=== PATIENT | female | born 1995 | race Caucasian/White ===

== ENCOUNTER 2020-09-09 11:29 | Outpatient (REF) | payer OTHER, SELFPAY | END 2020-09-09 11:30 | disposition home or self-care (01) | LOC: HO.LAB 11:29 | PROVIDERS: Visit Provider Internal Medicine | DX: Z20.828 Contact with and (suspected) exposure to other viral communicable diseases (principal) | CPT/HCPCS: 87635 ==

== ENCOUNTER 2020-12-19 20:50 | Emergency (ER) | payer OTHER, SELFPAY ==
[2020-12-19 21:32] VITALS: BP 116/78; PULSE 76; RESP 18; TEMP 37.4; O2SAT 96; BMI 37.3
--- NOTE | 2020-12-19 21:44 | PC.NURSE ---
COVID/FLU/RSV SWAB OBTAINED AND SENT TO LAB FOR ANALYSIS. AWAITING RESULTS.
--- NOTE | 2020-12-19 22:11 | ED.GENADULT ---
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 Patient states no coughing, chest pain, shortness of breath Related Data Allergies Allergy/AdvReac Type Severity Reaction Status Date / Time juan Allergy Unknown SWELLING Unverified 07/30/20 16:23 poison la extract Allergy Unknown DIFFICULTY Unverified 07/30/20 16:23 [POISON LA] BREATHING seansonal allergies Allergy Unknown Uncoded 04/26/19 00:00 Review of Systems Review of Systems: Yes all other systems are reviewed and are negative Constitutional: Constitutional: Reports as per HPI, Reports no additional constitutional complaints, Reports body ache(s) and Reports headache(s) Eyes: Eyes: Reports as per HPI and Reports no additional eye complaints ENT: Reports system reviewed and no additional complaints, except as documented, Reports as per HPI and Reports headache(s) Cardiovascular: Cardiovascular: Reports as per HPI and Reports no additional cardiovascular complaints Respiratory: Respiratory: Reports as per HPI and Reports no additional respiratory complaints Gastrointestinal: Gastrointestinal: Reports as per HPI and Reports no additional gastrointestinal complaints Genitourinary: Genitourinary: Reports no additional female genitourinary complaints and Reports as per HPI Musculoskeletal: Musculoskeletal: Reports no additional musculoskeletal complaints and Reports as per HPI Neurologic: Reports system reviewed and no additional complaints, except as documented, Reports as per HPI and Reports headache(s) PMFSH Social History Social History Advance Directives: No Advance Directives Information Provided: No Physical Exam Vital Signs: Vital Signs: Last Vital Signs Temp 99.4 F 12/19/20 21:32 Pulse 76 12/19/20 21:32 Resp 18 12/19/20 21:32 BP 116/78 12/19/20 21:32 Pulse Ox 96 12/19/20 21:32 Body Mass Index 37.3 Const: General: cooperative, healthy appearing, comfortable, no acute distress, well developed, alert, awake and Physically active Orientation/consciousness: patient oriented x3 HENMT: Head: Yes normal to inspection, Yes No palpable skull fracture present, Yes normocephalic and Yes atraumatic Eyes: General: appearance normal, both eyes and all related structures Neck: Neck: Yes normal visual inspection, Yes full ROM, Yes no lymphadenopathy, Yes no meningeal signs, Yes trachea midline, Yes supple and No tender Chest: Chest palpation & inspection: normal inspection of the chest and normal palpation of entire chest wall Resp: Effort & Inspection: normal respiratory effort, able to speak in complete sentences and uses accessory muscles Cardio: Jugular venous distension: no JVD Heart sounds: S1 normal heart sound present and S2 normal heart sound present GI: Inspection: Yes normal to inspection and No abdominal wall ecchymosis Palpation (GI): Soft to palpation, not firm, nontender, no guarding and not rigid : General: No CVA tenderness and Yes no CVA tenderness Back/Spine/Pelvis: Back: no CVA tenderness, No CVA tenderness and No back tenderness Skin: General skin exam: no rashes or lesions noted and elasticity normal Neuro: General: patient oriented x3, no meningeal signs and CN's II-XI intact bilaterally Cranial nerves: Yes CN's II-XII intact bilaterally Extrem: General: Yes normal to inspection and Yes full ROM Psych: Appearance: grossly normal, well kempt and not disheveled Course Course Course Narrative: Patient is swabbed for COVID-19 virus. Reevaluation(s) Reevaluation #1: Patient educated on self-isolation. Patient will be called with results and be discharged. Time: 21:32 Reevaluation #2: Patient was called on her cell phone and she was informed that she is positive for COVID-19 virus. Patient informed to self quarantine Time: 00:51 Medical Decision Making [facility] Narrative Medical decision making narrative: Viral syndrome. COVID-19 Lab Data Labs: Lab Results 12/19/20 Range/Units 21:42 Coronavirus (PCR) POSITIVE A (Negative) Influenza Type A (PCR) NEGATIVE (Negative) Influenza Type B (PCR) NEGATIVE (Negative) RSV RNA Qual (PCR) NEGATIVE (Negative) Discharge Plan Discharge Clinical Impression: Acute viral syndrome Patient Disposition: Home, Self-Care Instructions: Viral Syndrome (ED), COVID-19 (Coronavirus Disease 2019) (ED) Additional Instructions: Return to the ED immediately for any chest pain, shortness of breath, weakness, dizziness, or any other concerning symptoms. your COVID test come back positive recommend 14 days self-isolation. Please follow-up PCP Interventions: ED Discharge Assessment Last Done: 12/19/20 22:35 Discharge Date/Time: 12/19/20 22:35 Print Language: Sami
[2020-12-19 23:37] LABS: Influenza A PCR NEGATIVE (Negative); Influenza B PCR NEGATIVE (Negative); Resp Syncy Virus RNA Qual PCR NEGATIVE (Negative)
[2020-12-19 23:52] LABS: SARS COV2 PCR INHOUSE POSITIVE (Negative)
== END 2020-12-19 22:35 | disposition home or self-care (01) ==
PROVIDERS: Physician Assistant; Emergency Provider Emergency Medicine
DX: U07.1 COVID-19 (principal); R51.9 Headache, unspecified; M79.10 Myalgia, unspecified site
CPT/HCPCS: 0241U; 36415; 99283

== ENCOUNTER 2021-05-12 10:43 | Emergency (ER) | payer OTHER, SELFPAY ==
--- NOTE | ~2021-05-12 | CT_ITS ---
EXAMINATION: CT ABDOMEN AND PELVIS WITH CONTRAST CLINICAL INFORMATION: Abdominal pain. Elevated white blood cell count COMPARISON: Previous abdominal ultrasound November 2015 pelvic ultrasound November 2018 TECHNIQUE: Multidetector volumetric images were obtained from the superior aspect of the liver through the pubic symphysis following administration 85 mL of Omnipaque 350 intravenous contrast. Sagittal and coronal reformatted images were obtained on the technologist's workstation. Oral contrast: Yes This CT examination was performed using dose optimization techniques as appropriate, variously including the following: *Automated exposure control *Adjustment of mA and/or kV according to patient size (this includes techniques or standardized protocols for targeted exams where dose is matched to indication/reason for exam; i.e. extremities or head) *Use of iterative reconstruction technique DLP: 657 mGy-cm FINDINGS: LUNG BASES: The visualized lung bases are unremarkable. LIVER, GALLBLADDER, AND BILIARY TREE: The liver is normal in size, shape, and attenuation. No focal hepatic lesion or biliary ductal dilatation is present. The gallbladder is unremarkable with no evidence of radiopaque gallstones, gallbladder wall thickening, or obvious pericholecystic inflammatory changes. PANCREAS: Unremarkable. SPLEEN: Unremarkable. ADRENAL GLANDS: Unremarkable. KIDNEYS AND URETERS: There is a 2 mm nonobstructing stone in the lower pole right kidney. The kidneys are otherwise unremarkable. BLADDER: Unremarkable. GASTROINTESTINAL TRACT: There is question of mild wall thickening of the colon/mild colitis. The small and large bowel are otherwise unremarkable. The appendix is unremarkable. ABDOMINAL WALL: No significant hernia is appreciated. LYMPH NODES: Normal. VASCULAR: Unremarkable. PELVIC VISCERA: There is an IUD in the uterus in satisfactory position. OSSEOUS STRUCTURES: Unremarkable. CT/CT abdomen pelvis w con IMPRESSION: Question mild colitis of the colon. Small nonobstructing right renal stone. IUD in the uterus in satisfactory position.
[2021-05-12 10:53] VITALS: BP 146/92; PULSE 60
[2021-05-12 13:57] VITALS: BP 104/70; PULSE 52; RESP 18; TEMP 35.8; O2SAT 99; BMI 39.0
[2021-05-12 15:10] VITALS: BP 114/67; PULSE 60; RESP 16; TEMP 37.2; O2SAT 98
[2021-05-12 15:28] LABS: MANUAL DIFF FLAG NO
[2021-05-12 15:31] LABS: Basophils Absolute Auto 0.1 X10*3/uL (0.0-0.2); Basophils Percent Auto 0.3 % (0-2); Hematocrit 45.5 % (37-47); Hemoglobin 15.4 g/dl (12.0-16.0); Imm Gran Abs Auto 0.08 X10*3/uL (0.00-0.03); Imm Gran Pct Auto 0.4 % (0.0-0.4); Lymphocytes Absolute Auto 1.6 X10*3/uL (1.2-4.9); Lymphocytes Percent Auto 7.9 % (20-40); Mean Corpuscular HGB Conc 33.8 g/dl (31.0-35.0); Mean Corpuscular Hemoglobin 30.1 pg (27.0-33.0); Mean Platelet Volume 10.3 fL (9.4-12.3); Monocytes Absolute Auto 0.9 X10*3/uL (0.1-1.2); Monocytes Percent Auto 4.5 % (2-11); Neutrophils Absolute Auto 17.1 X10*3/uL (2.0-8.3); Neutrophils Percent Auto 86.9 % (45-73); Platelet Count 429 X10*3/uL (160-400); Red Blood Count 5.11 X10*6/uL (4.20-5.50); Red Cell Distribution Width 12.5 % (11.0-16.0); White Blood Count 19.7 X10*3/uL (4.8-10.8)
[2021-05-12 15:32] LABS: Glucose Urine UA NEG (NEG); Leukocyte Esterase Urine NEG (NEG); Nitrite Urine NEG (NEG); Specific Gravity - Urine 1.015 (1.005-1.025); Urine Blood NEG (NEG); Urine Ketones >=80 MG/DL (NEG); Urine Protein 2+ MG/DL (NEG-TRACE)
[2021-05-12 15:34] LABS: Appearance Urine HAZY; Color Urine YELLOW
[2021-05-12 15:35] LABS: UPreg QC Valid YES; Urine Pregnancy NEGATIVE (NEGATIVE)
[2021-05-12 15:43] LABS: Amorphous Sediment Urine TRACE /LPF; Mucus Urine 4+ /LPF; RBC Urine 0-2 /HPF (0); Renal Epithelial Cells Urine 1+ /LPF; Squamous Epithelial Cell Urine 1+ /LPF; WBC Urine 0 /HPF (0-4)
--- NOTE | 2021-05-12 15:43 | ED_ITS ---
HPI - Abdominal Pain General Chief Complaint: Abdominal Pain Stated Complaint: MEDIAL ABDOMINAL PAIN Time Seen by Provider: 05/12/21 15:37 History of Present Illness HPI narrative: this is a 26 years old female presented to the emergency department with a chief complaint of upper abdominal pain nausea vomiting since yesterday. She also complaining of diarrhea. She denies any prior abdominal surgery but C-sections MD elicited complaint: abdominal pain Pertinent past history: none Onset (ago): day(s) (1) Pain Consistency: constant Location: epigastric Severity: moderate Quality: cramping Radiation: none Migration to: no migration Exacerbating factors: nothing Relieving factors: nothing Related Data Previous Rx's Medication Instructions Recorded levofloxacin 500 mg PO DAILY 7 Days #7 tab 05/12/21 ondansetron HCl [Zofran] 4 mg PO Q8H PRN #14 tab 05/12/21 Allergies Allergy/AdvReac Type Severity Reaction Status Date / Time juan Allergy Unknown SWELLING Verified 05/12/21 13:56 poison la extract Allergy Unknown DIFFICULTY Verified 05/12/21 13:56 [POISON LA] BREATHING seansonal allergies Allergy Unknown Watery Eye Uncoded 05/12/21 13:56 Review of Systems Review of Systems Yes all other systems are reviewed and are negative Cardiovascular: Reports no additional cardiovascular complaints Respiratory: Reports no additional respiratory complaints Reports system reviewed and no additional complaints, except as documented Physical Exam Vital Signs: Vital Signs: Last Vital Signs Temp 98.3 F 05/12/21 16:00 Pulse 47 L 05/12/21 16:00 Resp 16 05/12/21 16:00 BP 111/54 L 05/12/21 16:00 Pulse Ox 99 05/12/21 16:00 Body Mass Index 39.0 Const: Other: patient is awake and alert in mild distress General: cooperative Orientation/consciousness: oriented to person, oriented to place, oriented to time and patient oriented x3 HENMT: Head: Yes normal to inspection and Yes No palpable skull fracture present Ears: hearing grossly normal bilaterally General nose exam: Normal external nose present Eyes: General: appearance normal, both eyes and all related structures Periorbital: periorbital findings normal Neck: Neck: Yes normal visual inspection, Yes full ROM and Yes no lymphadenopathy Chest: Chest palpation & inspection: normal inspection of the chest and normal palpation of entire chest wall Resp: Effort & Inspection: normal respiratory effort and able to speak in complete sentences Cardio: Jugular venous distension: no JVD Palpation: normal PMI Rate: regular rate Rhythm: regular rhythm GI: Other: patient has a mild tenderness in the epigastric area Inspection: Yes normal to inspection Skin: General skin exam: no rashes or lesions noted, elasticity normal and turgor normal Lesions: no lesions Rashes: no rashes Neuro: General: oriented to person, oriented to place, oriented to time, patient oriented x3 and gait normal Course Reevaluation(s) Reevaluation #1: patient is doing much better abdomen is soft not tender no abdominal pain whatsoever we are waiting for the CT scan of the abdomen and pelvis Time: 17:10 Reevaluation #2: his CT scan of the abdomen and pelvis that showed a normal appendix she has evidence of colitis she is feeling much better now abdomen is soft I think the patient can be discharged home a, will give a clear liquid diet Zofran and p.o. Levaquin MDM - Abdominal Pain Lab Data Attestation: I reviewed the patient's lab results. Result diagrams: 05/12/21 15:20 05/12/21 15:20 Labs: Lab Results 05/12/21 05/12/21 05/12/21 Range/Units 15:20 15:20 15:20 WBC 19.7 H (4.8-10.8) X10*3/uL RBC 5.11 (4.20-5.50) X10*6/uL Hgb 15.4 (12.0-16.0) g/dl Hct 45.5 (37-47) % MCV 89.0 (80-98) fL MCH 30.1 (27.0-33.0) pg MCHC 33.8 (31.0-35.0) g/dl RDW 12.5 (11.0-16.0) % Plt Count 429 H (160-400) X10*3/uL MPV 10.3 (9.4-12.3) fL Immature Gran % (Auto) 0.4 (0.0-0.4) % Neut % (Auto) 86.9 H (45-73) % Lymph % (Auto) 7.9 L (20-40) % [place] % (Auto) 4.5 (2-11) % Eos % (Auto) 0.0 (0-4) % Baso % (Auto) 0.3 (0-2) % Lymph # (Auto) 1.6 (1.2-4.9) X10*3/uL [place] # (Auto) 0.9 (0.1-1.2) X10*3/uL Eos # (Auto) 0.0 (0.0-0.4) X10*3/uL Baso # (Auto) 0.1 (0.0-0.2) X10*3/uL Abs Immat Gran (auto) 0.08 H (0.00-0.03) X10*3/uL Absolute Neuts (auto) 17.1 H (2.0-8.3) X10*3/uL Absolute Nucleated RBC 0.000 (0.0-0.012) X10*3/uL Nucleated RBC % (auto) 0.0 (0.0-0.2) /100WBC Sodium 144 (135-145) mmol/L Potassium 4.1 (3.3-5.1) mmol/L Chloride 104 (96-108) mmol/L Carbon Dioxide 28 (22-29) mmol/L Anion Gap 16 (12-20) BUN 11 (9-16) mg/dL Creatinine 0.83 (0.5-1.4) mg/dL Estim Creat Clear Calc 99.7 Estimated GFR > 60 Random Glucose 101 (60-115) mg/dL Calcium 10.2 (8.4-10.2) mg/dL Total Bilirubin 0.6 (0.0-1.0) mg/dL Direct Bilirubin 0.4 (0.0-0.5) mg/dL AST 20 (5-31) U/L ALT 30 (0-31) U/L Alkaline Phosphatase 102 (39-117) U/L Total Protein 7.7 (6.5-8.0) g/dL Albumin 4.9 (3.5-5.0) g/dL Urine Color YELLOW Urine Appearance HAZY Urine pH 8.0 (5.0-8.0) Ur Specific [place] 1.015 (1.005-1.025) Urine Protein 2+ H (NEG-TRACE) MG/DL Urine Glucose (UA) NEG (NEG) MG/DL Urine Ketones >=80 (NEG) MG/DL Urine Blood NEG (NEG) Urine Nitrite NEG (NEG) Ur Leukocyte Esterase NEG (NEG) Urine RBC 0-2 (0) /HPF Urine WBC 0 (0-4) /HPF Ur Squamous Epith Cells 1+ /LPF Ur Renal Epithelial Cell 1+ /LPF Amorphous Sediment TRACE /LPF Urine Bacteria NONE /LPF Urine Mucus 4+ /LPF Urine Test (NEGATIVE) 05/12/21 Range/Units 15:20 WBC (4.8-10.8) X10*3/uL RBC (4.20-5.50) X10*6/uL Hgb (12.0-16.0) g/dl Hct (37-47) % MCV (80-98) fL MCH (27.0-33.0) pg MCHC (31.0-35.0) g/dl RDW (11.0-16.0) % Plt Count (160-400) X10*3/uL MPV (9.4-12.3) fL Immature Gran % (Auto) (0.0-0.4) % Neut % (Auto) (45-73) % Lymph % (Auto) (20-40) % [place] % (Auto) (2-11) % Eos % (Auto) (0-4) % Baso % (Auto) (0-2) % Lymph # (Auto) (1.2-4.9) X10*3/uL [place] # (Auto) (0.1-1.2) X10*3/uL Eos # (Auto) (0.0-0.4) X10*3/uL Baso # (Auto) (0.0-0.2) X10*3/uL Abs Immat Gran (auto) (0.00-0.03) X10*3/uL Absolute Neuts (auto) (2.0-8.3) X10*3/uL Absolute Nucleated RBC (0.0-0.012) X10*3/uL Nucleated RBC % (auto) (0.0-0.2) /100WBC Sodium (135-145) mmol/L Potassium (3.3-5.1) mmol/L Chloride (96-108) mmol/L Carbon Dioxide (22-29) mmol/L Anion Gap (12-20) BUN (9-16) mg/dL Creatinine (0.5-1.4) mg/dL Estim Creat Clear Calc Estimated GFR Random Glucose (60-115) mg/dL Calcium (8.4-10.2) mg/dL Total Bilirubin (0.0-1.0) mg/dL Direct Bilirubin (0.0-0.5) mg/dL AST (5-31) U/L ALT (0-31) U/L Alkaline Phosphatase (39-117) U/L Total Protein (6.5-8.0) g/dL Albumin (3.5-5.0) g/dL Urine Color Urine Appearance Urine pH (5.0-8.0) Ur Specific [place] (1.005-1.025) Urine Protein (NEG-TRACE) MG/DL Urine Glucose (UA) (NEG) MG/DL Urine Ketones (NEG) MG/DL Urine Blood (NEG) Urine Nitrite (NEG) Ur Leukocyte Esterase (NEG) Urine RBC (0) /HPF Urine WBC (0-4) /HPF Ur Squamous Epith Cells /LPF Ur Renal Epithelial Cell /LPF Amorphous Sediment /LPF Urine Bacteria /LPF Urine Mucus /LPF Urine Test NEGATIVE (NEGATIVE) Imaging Data CT scan - abdomen: My impression: ct showed normal appendex,mild colitis Discharge Plan Discharge Clinical Impression: Colitis without complication Patient Disposition: Home, Self-Care Instructions: Colitis (ED) Additional Instructions: liquid diet for about 48 hours return if you worse fever vomiting Prescriptions: New ondansetron HCl [Zofran] 4 mg tablet 4 mg PO Q8H PRN (Reason: nausea and vomiting) Qty: 14 RF: 0 levofloxacin 500 mg tablet 500 mg PO DAILY 7 Days Qty: 7 RF: 0 Interventions: ED Discharge Assessment Last Done: 05/12/21 17:21 Discharge Date/Time: 05/12/21 17:24 [facility] Past Medical History Medical History No known health problems Social History Social History Smoked in Last 30 Days: No Use of substances other than those prescribed or required for medical reasons: Yes Substance Use Type: Marijuana Advance Directives: No Advance Directives Information Provided: Yes
[2021-05-12] MEDS: 0.9 % Sodium Chloride 1,000 ML 999 ML IVCONT (15:55)
[2021-05-12] MEDS: Metoclopramide HCl 10 MG/2 ML VIAL IVPUSH (15:55)
[2021-05-12] MEDS: diphenhydrAMINE HCL 50 MG/ML VIAL 25 MG IVPUSH (15:55)
[2021-05-12 16:00] VITALS: BP 111/54; PULSE 47; RESP 16; TEMP 36.8; O2SAT 99
[2021-05-12 16:11] LABS: Alanine Aminotransferase 30 U/L (0-31); Albumin Level 4.9 g/dL (3.5-5.0); Alkaline Phosphatase 102 U/L (39-117); Anion Gap 16 (12-20); Aspartate Amino Transferase 20 U/L (5-31); Bilirubin Direct 0.4 mg/dL (0.0-0.5); Bilirubin Total 0.6 mg/dL (0.0-1.0); Blood Urea Nitrogen 11 mg/dL (9-16); Calcium 10.2 mg/dL (8.4-10.2); Carbon Dioxide 28 mmol/L (22-29); Chloride 104 mmol/L (96-108); Creatinine Clr Calc Pharmacy 99.7; Estimated Glomerular Filt Rate > 60; Glucose Random 101 mg/dL (60-115); Potassium 4.1 mmol/L (3.3-5.1); Sodium 144 mmol/L (135-145); Total Protein 7.7 g/dL (6.5-8.0)
[2021-05-12] MEDS: iohexoL 350 MG/ML 100 ML INFUS..BTL 85 ML IV (16:35)
== END 2021-05-12 17:24 | disposition home or self-care (01) ==
PROVIDERS: Emergency Provider Emergency Medicine
DX: K52.9 Noninfective gastroenteritis and colitis, unspecified (principal)
CPT/HCPCS: 36415; 74177; 80048; 80076; 81001; 81025; 85025; 96361; 96374; 96375; 99284; J1200; J2765; Q9967

== ENCOUNTER 2021-09-18 12:31 | Emergency (ER) | payer OTHER, SELFPAY ==
[2021-09-18] VITALS (7 sets, daily range): BP systolic 99–127; BP diastolic 56–76; PULSE 54–98; RESP 16–19; TEMP 36.6–37.1; O2SAT 96; BMI 34.3
--- NOTE | 2021-09-18 14:34 | ED.GENADULT ---
HPI - General Adult General Chief complaint: General Medical Stated complaint: vomiting blood Time Seen by Provider: 09/18/21 14:32 History of Present Illness HPI narrative: Patient 26-year-old female presents today with having nausea vomiting. At first vomiting yellow stuff. Subsequently patient had a nose bleed noted blood in the toilet and also coughing up blood. Patient nausea has subsided. Denies any abdominal pain. Does not think she is . Patient is from home. Not on blood thinners. No bloody stool. No abdominal pain. Patient from home. No coughing or congestion or upper respiratory symptom at this time. 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 Medical History No known health problems Social History Social History Alcohol intake: never Patient Tobacco Use Status: Current everyday Tobacco user Use of substances other than those prescribed or required for medical reasons: Yes Substance Use Type: Marijuana Advance Directives: No Patient : No Physical Exam Vital Signs: Vital Signs: Last Vital Signs Temp 98.7 F 09/18/21 15:14 Pulse 72 09/18/21 15:44 Resp 16 09/18/21 15:14 BP 99/76 09/18/21 15:44 Pulse Ox 96 09/18/21 15:14 Body Mass Index 34.3 Appearance: Alert. Oriented X3. No acute distress. Eyes: Pupils equal, round and reactive to light. ENT: Pharynx normal. Neck: Normal inspection. Neck supple. No lymph nodes noted. No crepitus CVS: Normal heart rate and rhythm. Pulses normal. Normal S1 and S2 Respiratory: No respiratory distress. Breath sounds normal. No Wheezing. No rales Abdomen: Soft and nontender. No rigidity. No distention. good BS x4 Skin: Skin warm and dry. Normal skin color. Normal skin turgor. Extremities: No lower extremity edema. Neurovascular intact to all extremities. No Lacerations. No Rash Neuro: Oriented X 3. No motor deficit. No sensory deficit. Moving all extermities. No slurred speech Medical Decision Making MDM Narrative Medical decision making narrative: Patient has no evidence for GI bleed. Hemoglobin is normal. Patient's rectal exam showed no blood. Most likely did have an episode of nose bleed as there is some dried clots in her nose. Abdominal exam is soft nontender. Liver profile is normal. Will discharge patient home. No longer nauseous. Tolerating fluids. In stable condition with discharge home. Lab Data Result diagrams: 09/18/21 15:20 09/18/21 15:20 Labs: Lab Results 09/18/21 09/18/21 09/18/21 Range/Units 15:01 15:20 15:20 WBC 16.2 H (4.8-10.8) X10*3/uL RBC 4.74 (4.20-5.50) X10*6/uL Hgb 14.4 (12.0-16.0) g/dl Hct 42.8 (37.0-47.0) % MCV 90.3 (80.0-98.0) fL MCH 30.4 (27.0-33.0) pg MCHC 33.6 (31.0-35.0) g/dl RDW 12.5 (11.0-16.0) % Plt Count 371 (160-400) X10*3/uL MPV 9.8 (9.4-12.3) fL Immature Gran % (Auto) 0.3 (0.0-0.4) % Neut % (Auto) 64.6 (45-73) % Lymph % (Auto) 27.6 (20-40) % [place] % (Auto) 6.6 (2-11) % Eos % (Auto) 0.5 (0-4) % Baso % (Auto) 0.4 (0-2) % Lymph # (Auto) 4.5 (1.2-4.9) X10*3/uL [place] # (Auto) 1.1 (0.1-1.2) X10*3/uL Eos # (Auto) 0.1 (0.0-0.4) X10*3/uL Baso # (Auto) 0.1 (0.0-0.2) X10*3/uL Abs Immat Gran (auto) 0.05 H (0.00-0.03) X10*3/uL Absolute Neuts (auto) 10.5 H (2.0-8.3) x10*3/uL Absolute Nucleated RBC 0.000 (0.0-0.012) X10*3/uL Nucleated RBC % (auto) 0.0 (0.0-0.2) /100WBC Sodium 141 (135-145) mmol/L Potassium 4.0 (3.3-5.1) mmol/L Chloride 108 (96-108) mmol/L Carbon Dioxide 26 (22-29) mmol/L Anion Gap 11 L (12-20) BUN 10 (9-16) mg/dL Creatinine 0.75 (0.5-1.4) mg/dL Estim Creat Clear Calc 102.7 Estimated GFR > 60 Random Glucose 79 (60-115) mg/dL Calcium 9.4 D (8.4-10.2) mg/dL Total Bilirubin 0.9 (0.0-1.0) mg/dL Direct Bilirubin 0.4 (0.0-0.5) mg/dL AST 23 (5-31) U/L ALT 45 H (0-31) U/L Alkaline Phosphatase 99 (39-117) U/L Total Protein 7.0 (6.5-8.0) g/dL Albumin 4.6 (3.5-5.0) g/dL Lipase 12 (8-78) U/L Stool Occult Blood NEGATIVE (NEGATIVE) Discharge Plan Discharge Clinical Impression: Acute anterior epistaxis, Vomiting Patient Disposition: Home, Self-Care Instructions: Acute Nausea and Vomiting (ED) Prescriptions: No Action ondansetron HCl [Zofran] 4 mg tablet 4 mg PO Q8H PRN (Reason: nausea and vomiting) Qty: 14 RF: 0 levofloxacin 500 mg tablet 500 mg PO DAILY 7 Days Qty: 7 RF: 0 Referrals: Physician,None [Primary Care Provider] - 2 days
[2021-09-18 15:06] LABS: OBS Int Ctl Valid YES; OBS1 NEGATIVE (NEGATIVE)
[2021-09-18 15:26] LABS: MANUAL DIFF FLAG NO
[2021-09-18 15:27] LABS: Basophils Absolute Auto 0.1 X10*3/uL (0.0-0.2); Basophils Percent Auto 0.4 % (0-2); Eosinophils Absolute Auto 0.1 X10*3/uL (0.0-0.4); Eosinophils Percent Auto 0.5 % (0-4); Hematocrit 42.8 % (37.0-47.0); Hemoglobin 14.4 g/dl (12.0-16.0); Imm Gran Abs Auto 0.05 X10*3/uL (0.00-0.03); Imm Gran Pct Auto 0.3 % (0.0-0.4); Lymphocytes Absolute Auto 4.5 X10*3/uL (1.2-4.9); Lymphocytes Percent Auto 27.6 % (20-40); Mean Corpuscular HGB Conc 33.6 g/dl (31.0-35.0); Mean Corpuscular Hemoglobin 30.4 pg (27.0-33.0); Mean Corpuscular Volume 90.3 fL (80.0-98.0); Mean Platelet Volume 9.8 fL (9.4-12.3); Monocytes Absolute Auto 1.1 X10*3/uL (0.1-1.2); Monocytes Percent Auto 6.6 % (2-11); Neutrophils Absolute Auto 10.5 x10*3/uL (2.0-8.3); Neutrophils Percent Auto 64.6 % (45-73); Platelet Count 371 X10*3/uL (160-400); Red Blood Count 4.74 X10*6/uL (4.20-5.50); Red Cell Distribution Width 12.5 % (11.0-16.0); White Blood Count 16.2 X10*3/uL (4.8-10.8)
[2021-09-18 15:44] LABS: Alanine Aminotransferase 45 U/L (0-31); Albumin Level 4.6 g/dL (3.5-5.0); Alkaline Phosphatase 99 U/L (39-117); Anion Gap 11 (12-20); Aspartate Amino Transferase 23 U/L (5-31); Bilirubin Direct 0.4 mg/dL (0.0-0.5); Bilirubin Total 0.9 mg/dL (0.0-1.0); Blood Urea Nitrogen 10 mg/dL (9-16); Calcium 9.4 mg/dL (8.4-10.2); Carbon Dioxide 26 mmol/L (22-29); Chloride 108 mmol/L (96-108); Creatinine Clr Calc Pharmacy 102.7; Estimated Glomerular Filt Rate > 60; Glucose Random 79 mg/dL (60-115); Lipase 12 U/L (8-78); Sodium 141 mmol/L (135-145)
[2021-09-18 15:50] LABS: HCG Quantitative < 2 mIU/mL
--- NOTE | 2021-09-18 15:52 | ED_ITS ---
HPI - General Adult General Chief complaint: General Medical Stated complaint: vomiting blood Time Seen by Provider: 09/18/21 14:32 Related Data Previous Rx's Medication Instructions Recorded levofloxacin 500 mg tablet 500 mg PO DAILY 7 Days #7 tab 05/12/21 ondansetron HCl 4 mg tablet 4 mg PO Q8H PRN #14 tab 05/12/21 (Zofran) Allergies Allergy/AdvReac Type Severity Reaction Status Date / Time juan Allergy Unknown SWELLING Verified 05/12/21 13:56 poison la extract Allergy Unknown DIFFICULTY Verified 05/12/21 13:56 [POISON LA] BREATHING seansonal allergies Allergy Unknown Watery Eye Uncoded 05/12/21 13:56 [facility] Past Medical History Medical History No known health problems Social History Social History Alcohol intake: never Patient Tobacco Use Status: Current everyday Tobacco user Use of substances other than those prescribed or required for medical reasons: Yes Substance Use Type: Marijuana Advance Directives: No Patient : No Physical Exam Vital Signs: Vital Signs: Last Vital Signs Temp 98.7 F 09/18/21 15:14 Pulse 71 09/18/21 16:05 Resp 16 09/18/21 15:14 BP 127/76 09/18/21 16:05 Pulse Ox 96 09/18/21 15:14 Body Mass Index 34.3 Medical Decision Making Lab Data Result diagrams: 09/18/21 15:20 09/18/21 15:20 Labs: Lab Results 09/18/21 09/18/21 09/18/21 Range/Units 15:01 15:20 15:20 WBC 16.2 H (4.8-10.8) X10*3/uL RBC 4.74 (4.20-5.50) X10*6/uL Hgb 14.4 (12.0-16.0) g/dl Hct 42.8 (37.0-47.0) % MCV 90.3 (80.0-98.0) fL MCH 30.4 (27.0-33.0) pg MCHC 33.6 (31.0-35.0) g/dl RDW 12.5 (11.0-16.0) % Plt Count 371 (160-400) X10*3/uL MPV 9.8 (9.4-12.3) fL Immature Gran % (Auto) 0.3 (0.0-0.4) % Neut % (Auto) 64.6 (45-73) % Lymph % (Auto) 27.6 (20-40) % [place] % (Auto) 6.6 (2-11) % Eos % (Auto) 0.5 (0-4) % Baso % (Auto) 0.4 (0-2) % Lymph # (Auto) 4.5 (1.2-4.9) X10*3/uL [place] # (Auto) 1.1 (0.1-1.2) X10*3/uL Eos # (Auto) 0.1 (0.0-0.4) X10*3/uL Baso # (Auto) 0.1 (0.0-0.2) X10*3/uL Abs Immat Gran (auto) 0.05 H (0.00-0.03) X10*3/uL Absolute Neuts (auto) 10.5 H (2.0-8.3) x10*3/uL Absolute Nucleated RBC 0.000 (0.0-0.012) X10*3/uL Nucleated RBC % (auto) 0.0 (0.0-0.2) /100WBC Sodium 141 (135-145) mmol/L Potassium 4.0 (3.3-5.1) mmol/L Chloride 108 (96-108) mmol/L Carbon Dioxide 26 (22-29) mmol/L Anion Gap 11 L (12-20) BUN 10 (9-16) mg/dL Creatinine 0.75 (0.5-1.4) mg/dL Estim Creat Clear Calc 102.7 Estimated GFR > 60 Random Glucose 79 (60-115) mg/dL Calcium 9.4 D (8.4-10.2) mg/dL Total Bilirubin 0.9 (0.0-1.0) mg/dL Direct Bilirubin 0.4 (0.0-0.5) mg/dL AST 23 (5-31) U/L ALT 45 H (0-31) U/L Alkaline Phosphatase 99 (39-117) U/L Total Protein 7.0 (6.5-8.0) g/dL Albumin 4.6 (3.5-5.0) g/dL Lipase 12 (8-78) U/L Beta HCG, Quant < 2 mIU/mL Stool Occult Blood NEGATIVE (NEGATIVE) Discharge Plan Discharge Clinical Impression: Acute anterior epistaxis, Vomiting Patient Disposition: Home, Self-Care Instructions: Acute Nausea and Vomiting (ED) Prescriptions: No Action ondansetron HCl [Zofran] 4 mg tablet 4 mg PO Q8H PRN (Reason: nausea and vomiting) Qty: 14 RF: 0 levofloxacin 500 mg tablet 500 mg PO DAILY 7 Days Qty: 7 RF: 0 Referrals: Physician,None [Primary Care Provider] - 2 days Interventions: ED Discharge Assessment Last Done: 09/18/21 15:56 Discharge Date/Time: 09/18/21 16:13
== END 2021-09-18 16:13 | disposition home or self-care (01) ==
PROVIDERS: Emergency Provider Emergency Medicine Emergency Medical Services
DX: R04.0 Epistaxis (principal); R11.10 Vomiting, unspecified; F12.90 Cannabis use, unspecified, uncomplicated; Z79.899 Other long term (current) drug therapy; F17.200 Nicotine dependence, unspecified, uncomplicated; Z71.6 Tobacco abuse counseling
CPT/HCPCS: 36415; 80048; 80076; 82272; 83690; 84702; 85025; 99284

== ENCOUNTER 2021-10-12 13:40 | Outpatient (REF) | payer OTHER, SELFPAY | END 2021-10-12 13:41 | disposition home or self-care (01) | LOC: HO.LAB 13:40 | PROVIDERS: Visit Provider Internal Medicine | DX: Z20.822 Contact with and (suspected) exposure to COVID-19 (principal) | CPT/HCPCS: C9803; U0003; U0005 ==

== ENCOUNTER 2022-05-05 09:06 | Emergency (ER) | payer OTHER, SELFPAY ==
[2022-05-05 09:41] VITALS: BP 120/63; PULSE 69; RESP 16; TEMP 36.7; O2SAT 97; BMI 37.7
--- NOTE | 2022-05-05 09:46 | ED.GENADULT ---
HPI - General Adult General Chief complaint: General Medical <YEMI Christy Last Filed: 05/05/22 11:25> Stated complaint: vaginal pain, white discharge <YEMI Christy Last Filed: 05/05/22 11:25> Time Seen by Provider: 05/05/22 09:46 <YEMI Christy Last Filed: 05/05/22 11:25> Source: patient <YEMI Christy Last Filed: 05/05/22 11:25> Mode of arrival: ambulatory <YEMI Christy Last Filed: 05/05/22 11:25> Limitations: no limitations <YEMI Christy Last Filed: 05/05/22 11:25> History of Present Illness HPI narrative: 27-year-old female presents with 2 days of vaginal itching, pain with urination, urinary frequency, and white, clumpy vaginal discharge. Patient is sexually active, has an IUD, last menstrual period is 10 days ago. Patient denies pelvic pain, back pain, fevers. Patient has had no recent antibiotics, is here with the father of her child, would like to be tested for STDs <YEMI Christy Last Filed: 05/05/22 11:25> Related Data Home medications: Previous Rx's Medication Instructions Recorded levofloxacin 500 mg tablet 500 mg PO DAILY 7 days #7 tabs 05/12/21 ondansetron HCl 4 mg tablet 4 mg PO Q8H PRN nausea and 05/12/21 (Zofran) vomiting #14 tabs doxycycline hyclate 100 mg tablet 100 mg PO BID 7 days #14 tabs 05/05/22 fluconazole 150 mg tablet 150 mg PO Q3D 2 doses #2 tabs 05/05/22 nitrofurantoin macrocrystal 100 mg 100 mg PO BID 7 days #14 caps 05/05/22 capsule metronidazole 500 mg tablet 500 mg PO BID 7 days #14 tabs 05/08/22 <YEMI Christy Last Filed: 05/05/22 11:25> Allergies/adverse reactions: Allergies Allergy/AdvReac Type Severity Reaction Status Date / Time juan Allergy Unknown SWELLING Verified 05/12/21 13:56 poison la extract Allergy Unknown DIFFICULTY Verified 05/12/21 13:56 [POISON LA] BREATHING seansonal allergies Allergy Unknown Watery Eye Uncoded 05/12/21 13:56 <Padma Catherine [facility] Last Filed: 05/05/22 11:25> Review of Systems Constitutional: Constitutional: Denies body ache(s), Denies chills, Denies fatigue, Denies fever(s), Denies malaise and Denies weakness <Padma Catherine [facility] Last Filed: 05/05/22 11:25> Eyes: Eyes: Denies diplopia <Padma Catherine [facility] Last Filed: 05/05/22 11:25> Cardiovascular: Cardiovascular: Denies chest pain, Denies syncope, Denies leg edema, Denies lightheadedness, Denies Loss of Consciousness, Denies palpitations and Denies dyspnea <Padma Catherine [facility] Last Filed: 05/05/22 11:25> Respiratory: Respiratory: Denies chest congestion, Denies cough and Denies dyspnea <YEMI Christy Last Filed: 05/05/22 11:25> Gastrointestinal: Gastrointestinal: Denies abdominal pain, Denies hematochezia, Denies constipation, Denies diarrhea and Denies vomiting <Padma Catherine [facility] Last Filed: 05/05/22 11:25> Genitourinary: Genitourinary: Denies hematuria, Denies genital pruritis, Denies genital lesions, Denies dyspareunia, Reports dysuria, Denies pelvic pain, Denies flank pain, Denies urinary incontinence, Denies urinary hesitancy, Reports urinary urgency, Reports vaginal discharge, Denies vaginal odor and Reports vaginal pruritus <YEMI Christy Last Filed: 05/05/22 11:25> Musculoskeletal: Musculoskeletal: Reports no additional musculoskeletal complaints and Denies back pain <YEMI Christy Last Filed: 05/05/22 11:25> Neurologic: Denies confusion, Denies syncope and Denies weakness <YEMI Christy Last Filed: 05/05/22 11:25> Psychiatric: Psychiatric: Denies anxiety, Denies confusion and Denies depression <YEMI Christy Last Filed: 05/05/22 11:25> Endocrine: Endocrine: Denies fatigue and Denies palpitations <YEMI Christy - Last Filed: 05/05/22 11:25> PMFSH Past Medical History Medical History: Medical History No known health problems <YEMI Christy - Last Filed: 05/05/22 11:25> Social History Social History: Social History Alcohol intake: never Patient Tobacco Use Status: Current everyday Tobacco user Substance Use Type: Marijuana Advance Directives: No Advance Directives Information Provided: No <YEMI Christy - Last Filed: 05/05/22 11:25> Physical Exam ED Vital Signs: Vital Signs - 24 hr 05/05/22 09:41 Temperature 98.1 F Pulse Rate 69 Respiratory Rate 16 Blood Pressure 120/63 Pulse Oximetry 97 Oxygen Delivery Method Room Air BMI result Body Mass Index 37.7 <YEMI Christy - Last Filed: 05/05/22 11:25> Vital Signs - 24 hr 05/05/22 09:41 Temperature 98.1 F Pulse Rate 69 Respiratory Rate 16 Blood Pressure 120/63 Pulse Oximetry 97 Oxygen Delivery Method Room Air BMI result Body Mass Index 37.7 <Callie Leonardo PA - Last Filed: 05/08/22 19:35> Const General: No confusion <YEMI Christy - Last Filed: 05/05/22 11:25> Nutritional Appearance: well nourished <YEMI Christy - Last Filed: 05/05/22 11:25> Orientation/consciousness: No confusion <YEMI Christy - Last Filed: 05/05/22 11:25> Limitations: no limitations <YEMI Christy - Last Filed: 05/05/22 11:25> Eyes Conjunctivae: conjunctivae normal <YEMI Christy - Last Filed: 05/05/22 11:25> Pupils: Equal, round and reactive pupils present <YEMI Christy - Last Filed: 05/05/22 11:25> EOM: EOMs intact bilaterally <YEMI Christy - Last Filed: 05/05/22 11:25> Neck Neck: Yes full ROM, Yes no lymphadenopathy and Yes supple <YEMI Christy - Last Filed: 05/05/22 11:25> Resp Effort & Inspection: normal respiratory effort and able to speak in complete sentences <Padma Catherine [facility] Last Filed: 05/05/22 11:25> Auscultation: clear to auscultation bilaterally, no crackles, no rales, no rhonchi and no wheezes <Padma Catherine [facility] Last Filed: 05/05/22 11:25> Cardio Rate: regular rate <Padma Catherine [facility] Last Filed: 05/05/22 11:25> Rhythm: regular rhythm <Padma Catherine [facility] Last Filed: 05/05/22 11:25> Heart sounds: S1 normal heart sound present and S2 normal heart sound present <Padma Catherine [facility] Last Filed: 05/05/22 11:25> GI Inspection: Yes normal to inspection <Padma Catherine [facility] Last Filed: 05/05/22 11:25> Palpation (GI): Soft to palpation, nontender, no guarding and not rigid <Padma Catherine [facility] Last Filed: 05/05/22 11:25> Percussion: Yes normal to percussion <Padma Catherine [facility] Last Filed: 05/05/22 11:25> Auscultation: normal bowel sounds <Padma Catherine [facility] Last Filed: 05/05/22 11:25> General: Yes Bimanual renal exam normal bilaterally <Padma Catherine [facility] Last Filed: 05/05/22 11:25> External Female Exam: normal external appearance and normal appearance of the urethra <Padma Catherine [facility] Last Filed: 05/05/22 11:25> Speculum Exam - Vagina: normal appearance of the vagina, normal palpation, abnormal vaginal discharge white, not erythematous, no swelling and nontender <Padma Catherine [facility] Last Filed: 05/05/22 11:25> Speculum Exam - Cervix: normal appearance of the cervix and normal palpation <Padma Catherine [facility] Last Filed: 05/05/22 11:25> Bimanual exam- vagina & uterus: normal palpation and normal palpation <Padma Catherine [facility] Last Filed: 05/05/22 11:25> Bimanual Exam- Adnexa, other: normal adnexae, adnexae mobile, no tenderness and No adnexal tenderness <YEMI Christy Last Filed: 05/05/22 11:25> Skin General skin exam: no rashes or lesions noted <YEMI Christy Last Filed: 05/05/22 11:25> Neuro General: No confusion <YEMI Christy - Last Filed: 05/05/22 11:25> Cranial nerves: Yes Equal, round and reactive pupils present <YEMI Christy - Last Filed: 05/05/22 11:25> Extrem General: Yes normal to inspection and Yes full ROM <YEMI Christy Last Filed: 05/05/22 11:25> Psych Appearance: grossly normal <YEMI Christy Last Filed: 05/05/22 11:25> Affect: normal affect <YEMI Christy Last Filed: 05/05/22 11:25> Attitude: cooperative <YEMI Christy Last Filed: 05/05/22 11:25> Thought process: Normal thought process present <YEMI Christy Last Filed: 05/05/22 11:25> Course Course Course Narrative: 27-year-old female with 2 days of vaginal itching, urinary frequency and dysuria, and white vaginal discharge at his cottage cheese like in nature. On exam, patient has stable vitals, is well appearing, abdomen soft nontender, patient has no adnexal tenderness, no cervical motion tenderness. Patient does not report any pelvic pain, no CVA tenderness. Patient does have chunky white vaginal discharge, treated for gonorrhea with ceftriaxone here, sent prescription for doxycycline. This is most likely vaginal candidiasis, sent prescription for fluconazole. Will call patient with any positive results that returned today. Also treating patient with Macrobid for mild UTI. All patient's questions were answered, return precautions given <YEMI Christy Last Filed: 05/05/22 11:25> Reevaluation(s) Reevaluation #1: 05/08/20221934 Patient positive for Gardnerella. Flagyl prescribed. Patient contacted and informed. <YEMI Hernandez Last Filed: 05/08/22 19:35> Medical Decision Making Lab Data Labs: Lab Results 05/05/22 05/05/22 05/05/22 Range/Units 10:45 10:45 11:05 Urine Color YELLOW Urine Appearance HAZY Urine pH 6.5 (5.0-8.0) Ur Specific [place] 1.010 (1.005-1.025) Urine Protein NEG (NEG-TRACE) MG/DL Urine Glucose (UA) NEG (NEG) MG/DL Urine Ketones NEG (NEG) MG/DL Urine Blood NEG (NEG) Urine Nitrite NEG (NEG) Ur Leukocyte Esterase TRACE H (NEG) Urine RBC 0 (0) /HPF Urine WBC 0-2 (0-4) /HPF Ur Squamous Epith Cells 1+ /LPF Urine Bacteria NONE /LPF Urine Test NEGATIVE (NEGATIVE) Nikole species DNA (Negative) Chlam trachomat DNA PCR NOT DETECTED (Not Detect.) Gardnerella DNA Probe (Negative) N.gonorrhoeae DNA (PCR) NOT DETECTED (Not Detect.) Trichomonas DNA Probe (Negative) 05/05/22 Range/Units 11:05 Urine Color Urine Appearance Urine pH (5.0-8.0) Ur Specific [place] (1.005-1.025) Urine Protein (NEG-TRACE) MG/DL Urine Glucose (UA) (NEG) MG/DL Urine Ketones (NEG) MG/DL Urine Blood (NEG) Urine Nitrite (NEG) Ur Leukocyte Esterase (NEG) Urine RBC (0) /HPF Urine WBC (0-4) /HPF Ur Squamous Epith Cells /LPF Urine Bacteria /LPF Urine Test (NEGATIVE) Nikole species DNA Positive A (Negative) Chlam trachomat DNA PCR (Not Detect.) Gardnerella DNA Probe Positive A (Negative) N.gonorrhoeae DNA (PCR) (Not Detect.) Trichomonas DNA Probe Negative (Negative) <YEMI Christy - Last Filed: 05/05/22 11:25> Lab Results 05/05/22 05/05/22 05/05/22 Range/Units 10:45 10:45 11:05 Urine Color YELLOW Urine Appearance HAZY Urine pH 6.5 (5.0-8.0) Ur Specific [place] 1.010 (1.005-1.025) Urine Protein NEG (NEG-TRACE) MG/DL Urine Glucose (UA) NEG (NEG) MG/DL Urine Ketones NEG (NEG) MG/DL Urine Blood NEG (NEG) Urine Nitrite NEG (NEG) Ur Leukocyte Esterase TRACE H (NEG) Urine RBC 0 (0) /HPF Urine WBC 0-2 (0-4) /HPF Ur Squamous Epith Cells 1+ /LPF Urine Bacteria NONE /LPF Urine Test NEGATIVE (NEGATIVE) Nikole species DNA (Negative) Chlam trachomat DNA PCR NOT DETECTED (Not Detect.) Gardnerella DNA Probe (Negative) N.gonorrhoeae DNA (PCR) NOT DETECTED (Not Detect.) Trichomonas DNA Probe (Negative) 05/05/22 Range/Units 11:05 Urine Color Urine Appearance Urine pH (5.0-8.0) Ur Specific [place] (1.005-1.025) Urine Protein (NEG-TRACE) MG/DL Urine Glucose (UA) (NEG) MG/DL Urine Ketones (NEG) MG/DL Urine Blood (NEG) Urine Nitrite (NEG) Ur Leukocyte Esterase (NEG) Urine RBC (0) /HPF Urine WBC (0-4) /HPF Ur Squamous Epith Cells /LPF Urine Bacteria /LPF Urine Test (NEGATIVE) Nikole species DNA Positive A (Negative) Chlam trachomat DNA PCR (Not Detect.) Gardnerella DNA Probe Positive A (Negative) N.gonorrhoeae DNA (PCR) (Not Detect.) Trichomonas DNA Probe Negative (Negative) <YEMI Hernandez - Last Filed: 05/08/22 19:35> Discharge Plan Discharge Clinical Impression: Candidiasis of vagina, Possible exposure to STD, UTI (urinary tract infection) <YEMI Christy - Last Filed: 05/05/22 11:25> Patient Disposition: Home, Self-Care <YEMI Christy - Last Filed: 05/05/22 11:25> Instructions: Sexually Transmitted Diseases (ED), Urinary Tract Infection in Women (ED), Yeast Infection (ED) <YEMI Christy - Last Filed: 05/05/22 11:25> Additional Instructions: We have treated you for gonorrhea here in the emergency room today. I am sending a prescription for doxycycline to treat you for possible chlamydia. Please take this for 7 days, if you have not heard from us in 3 days, assume that your test was negative and you can stop these antibiotics You have a yeast infection, please take fluconazole once today, it ceased infection does not resolve in 3 days, take a 2nd pill In addition, you have a mild urinary tract infection, we will treat this with Macrobid, or nitrofurantoin, take this for 5 days. Please call your primary care provider for follow-up appointment from today's emergency room visit. Please return to emergency room for any new or concerning symptoms. <YEMI Christy - Last Filed: 05/05/22 11:25> Prescriptions: New doxycycline hyclate 100 mg tablet 100 mg PO BID 7 Days Qty: 14 0RF fluconazole 150 mg tablet 150 mg PO Q3D Qty: 2 0RF Rx Instructions: Please take 1 dose today, and if your vaginal infection does not clear up, take a 2nd dose 3 days from now nitrofurantoin macrocrystal 100 mg capsule 100 mg PO BID 7 Days Qty: 14 0RF Rx Instructions: must administer with a meal/food metronidazole 500 mg tablet 500 mg PO BID 7 Days Qty: 14 0RF No Action ondansetron HCl [Zofran] 4 mg tablet 4 mg PO Q8H PRN (Reason: nausea and vomiting) Qty: 14 0RF levofloxacin 500 mg tablet 500 mg PO DAILY 7 Days Qty: 7 0RF <YEMI Christy - Last Filed: 05/05/22 11:25> Interventions: ED Discharge Assessment Last Done: 05/05/22 11:26 <YEMI Christy - Last Filed: 05/05/22 11:25> Discharge Date/Time: 05/05/22 11:36 <YEMI Christy - Last Filed: 05/05/22 11:25>
[2022-05-05] MEDS: cefTRIAXone sodium 500 MG, Lidocaine HCl 1 % MPF 1 ML IM (10:52)
[2022-05-05 10:57] LABS: UPreg QC Valid YES; Urine Pregnancy NEGATIVE (NEGATIVE)
[2022-05-05 10:59] LABS: Appearance Urine HAZY; Color Urine YELLOW; Glucose Urine UA NEG (NEG); Leukocyte Esterase Urine TRACE (NEG); Nitrite Urine NEG (NEG); PH 6.5 (5.0-8.0); Urine Blood NEG (NEG); Urine Ketones NEG (NEG); Urine Protein NEG (NEG-TRACE)
[2022-05-05 11:14] LABS: RBC Urine 0 /HPF (0); Squamous Epithelial Cell Urine 1+ /LPF; WBC Urine 0-2 /HPF (0-4)
[2022-05-05 13:06] LABS: CT PCR NOT DETECTED (Not Detect.); NG PCR NOT DETECTED (Not Detect.)
[2022-05-06 09:16] LABS: BV Int Neg Control Negative (Negative); BV Int Pos Control Positive (Positive)
== END 2022-05-05 11:36 | disposition home or self-care (01) ==
PROVIDERS: Physician Assistant; Emergency Provider Student in an Organized Health Care Education/Training Program
DX: B37.3 Candidiasis of vulva and vagina (principal); N39.0 Urinary tract infection, site not specified; Z20.2 Contact with and (suspected) exposure to infections with a predominantly sexual mode of transmission; Z97.5 Presence of (intrauterine) contraceptive device
CPT/HCPCS: 81001; 81025; 87480; 87491; 87510; 87591; 87660; 96372; 99283; 99284; J0696

== ENCOUNTER 2022-11-16 14:06 | Emergency (ER) | payer OTHER, SELFPAY ==
--- NOTE | ~2022-11-16 | XR_ITS ---
EXAMINATION: XR SHOULDER, LEFT pre and post reduction CLINICAL INFORMATION: Pain. Dislocation COMPARISON: None TECHNIQUE: AP external rotation, Grashey, scapular Y, and axillary views of the left shoulder. Pre and post reduction studies. Images obtained at 2:42 PM and 3:11 PM FINDINGS: Initial images demonstrate anterior dislocation of the left humeral head with respect to the glenoid. The postreduction images demonstrate satisfactory reduction particularly on the Y view. I do not see evidence of fracture. The AC joint is intact. XR/XR shoulder LT 1V IMPRESSION: Anterior glenohumeral dislocation with subsequent satisfactory reduction.
--- NOTE | ~2022-11-16 | XR_ITS ---
EXAMINATION: XR SHOULDER, LEFT pre and post reduction CLINICAL INFORMATION: Pain. Dislocation COMPARISON: None TECHNIQUE: AP external rotation, Grashey, scapular Y, and axillary views of the left shoulder. Pre and post reduction studies. Images obtained at 2:42 PM and 3:11 PM FINDINGS: Initial images demonstrate anterior dislocation of the left humeral head with respect to the glenoid. The postreduction images demonstrate satisfactory reduction particularly on the Y view. I do not see evidence of fracture. The AC joint is intact. XR/XR shoulder LT min 2V IMPRESSION: Anterior glenohumeral dislocation with subsequent satisfactory reduction.
[2022-11-16 14:15] VITALS: BP 117/80; PULSE 76; RESP 16; TEMP 36.9; O2SAT 98; BMI 29.2
[2022-11-16 14:18] VITALS: BP 110/68; PULSE 69; O2SAT 100
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
== END 2022-11-16 16:26 | disposition home or self-care (01) ==
PROVIDERS: Emergency Provider Emergency Medicine Emergency Medical Services
DX: M24.412 Recurrent dislocation, left shoulder (principal)
CPT/HCPCS: 73020; 73030; 99282; 99283

== ENCOUNTER 2023-07-16 04:18 | Emergency (ER) | payer OTHER, SELFPAY ==
[2023-07-16 04:22] VITALS: BP 113/79; PULSE 67; RESP 18; TEMP 36.4; O2SAT 97; BMI 35.6
[2023-07-16 04:55] LABS: MANUAL DIFF FLAG NO
[2023-07-16 04:56] LABS: Basophils Percent Auto 0.3 % (0-2); Eosinophils Absolute Auto 0.2 X10*3/uL (0.0-0.4); Eosinophils Percent Auto 1.5 % (0-4); Hematocrit 41.1 % (37.0-47.0); Hemoglobin 13.9 g/dl (12.0-16.0); Imm Gran Abs Auto 0.03 X10*3/uL (0.00-0.03); Imm Gran Pct Auto 0.3 % (0.0-0.4); Mean Corpuscular HGB Conc 33.8 g/dl (31.0-35.0); Mean Corpuscular Hemoglobin 29.6 pg (27.0-33.0); Mean Corpuscular Volume 87.4 fL (80.0-98.0); Mean Platelet Volume 9.7 fL (9.4-12.3); Monocytes Percent Auto 8.7 % (2-11); Neutrophils Absolute Auto 7.9 x10*3/uL (2.0-8.3); Neutrophils Percent Auto 71.2 % (45-73); Platelet Count 295 X10*3/uL (160-400); Red Cell Distribution Width 12.3 % (11.0-16.0); White Blood Count 11.1 X10*3/uL (4.8-10.8)
[2023-07-16 05:18] LABS: Alanine Aminotransferase 48 U/L (0-31); Alkaline Phosphatase 75 U/L (39-117); Aspartate Amino Transferase 39 U/L (5-31); Bilirubin Direct 0.2 mg/dL (0.0-0.5); Bilirubin Total 0.4 mg/dL (0.0-1.0); Blood Urea Nitrogen 9 mg/dL (9-16); Calcium 9.1 mg/dL (8.4-10.2); Carbon Dioxide 26 mmol/L (22-29); Chloride 108 mmol/L (96-108); Creatinine Clr Calc Pharmacy 107.3; Estimated Glomerular Filt Rate > 60; Glucose Random 112 mg/dL (60-115); Lipase 12 U/L (8-78); Potassium 3.3 mmol/L (3.3-5.1); Sodium 142 mmol/L (135-145); Total Protein 6.5 g/dL (6.5-8.0)
[2023-07-16 05:19] LABS: Anion Gap 11 (12-20)
--- NOTE | 2023-07-16 05:24 | ED_ITS ---
HPI - Abdominal Pain General Chief Complaint: Abdominal Pain Stated Complaint: Abd pain/Vomiting Time Seen by Provider: 07/16/23 05:24 Source: patient Mode of arrival: ambulatory Limitations: no limitations History of Present Illness HPI narrative: Patient was healthy complaining of nausea vomiting diarrhea for last 2 days with epigastric pain patient's son was also sick few days ago for the same no fever no chills no abdominal distension or urinary complaints no upper respiratory symptoms patient had tuna 2 days ago no recent travel patient vomited more than 10 times and same number of diarrhea yesterday at this time patient nauseated and vomiting but no diarrhea patient does have history of gastritis not taking any medication Related Data Previous Rx's Medication Instructions Recorded levofloxacin 500 mg tablet 500 mg PO DAILY 7 days #7 tabs 05/12/21 ondansetron HCl 4 mg tablet 4 mg PO Q8H PRN nausea and 05/12/21 (Zofran) vomiting #14 tabs doxycycline hyclate 100 mg tablet 100 mg PO BID 7 days #14 tabs 05/05/22 fluconazole 150 mg tablet 150 mg PO Q3D 2 doses #2 tabs 05/05/22 nitrofurantoin macrocrystal 100 mg 100 mg PO BID 7 days #14 caps 05/05/22 capsule metronidazole 500 mg tablet 500 mg PO BID 7 days #14 tabs 05/08/22 omeprazole 40 mg capsule,delayed 40 mg PO DAILY #30 caps 07/16/23 release ondansetron 4 mg disintegrating 4 mg PO Q6-8H PRN nausea and 07/16/23 tablet vomiting #7 tabs Allergies Allergy/AdvReac Type Severity Reaction Status Date / Time juan Allergy Unknown SWELLING Verified 07/16/23 04:22 poison la extract Allergy Unknown DIFFICULTY Verified 07/16/23 04:22 [POISON LA] BREATHING seansonal allergies Allergy Unknown Watery Eye Uncoded 05/12/21 13:56 Review of Systems Review of Systems Yes all other systems are reviewed and are negative PMFSH Past Medical History Medical History No known health problems Social History Social History Alcohol intake: never Patient Tobacco Use Status: Current everyday Tobacco user Smoked in Last 30 Days: Yes Use of substances other than those prescribed or required for medical reasons: No Substance Use Type: Marijuana Advance Directives: No Advance Directives Information Provided: Yes Patient : No Physical Exam ED Vital Signs: Vital Signs - 24 hr 07/16/23 04:22 Temperature 97.6 F Pulse Rate 67 Respiratory Rate 18 Blood Pressure 113/79 Pulse Oximetry 97 Oxygen Delivery Method Room Air BMI result Body Mass Index 35.6 Appearance: Alert. Oriented X3. No acute distress. Eyes: PERRLA, No Nystagmus ENT: Pharynx normal. Oral Mucosa moist Neck: Normal inspection. Neck supple. CVS: Normal heart rate and rhythm. Pulses normal. Respiratory: No respiratory distress. Equal air entry bilateral, no wheezing/rales/rhonchi Abdomen: Soft mild tenderness in epigastric area no rebound tenderness or guarding. Bowel sounds are present, no mass palpable, no CVA tenderness Skin: Skin warm and dry. Normal skin color. Normal skin turgor. Extremities: No lower extremity edema. No calf tenderness Neuro: Oriented X 3. No motor deficit. No sensory deficit.No cerebellar signs , cranial nerves II-XII intact Medical Decision Making Medical Decision Making [facility] Narrative: Patient's labs are stable feeling much better after Zofran and Bentyl discharge patient home on Zofran and Prilosec Differential Diagnosis Differential Diagnoses: The differential diagnosis associated with the presentation includes Gastroenteritis/food poisoning/cholecystitis/UTI Lab Data [facility] Lab Attestation statement: I reviewed the patient's lab results. 07/16/23 04:49 07/16/23 04:49 Labs: Lab Results 07/16/23 07/16/23 07/16/23 Range/Units 04:49 04:49 05:33 WBC 11.1 H (4.8-10.8) X10*3/uL RBC 4.70 (4.20-5.50) X10*6/uL Hgb 13.9 (12.0-16.0) g/dl Hct 41.1 (37.0-47.0) % MCV 87.4 (80.0-98.0) fL MCH 29.6 (27.0-33.0) pg MCHC 33.8 (31.0-35.0) g/dl RDW 12.3 (11.0-16.0) % Plt Count 295 (160-400) X10*3/uL MPV 9.7 (9.4-12.3) fL Immature Gran % (Auto) 0.3 (0.0-0.4) % Neut % (Auto) 71.2 (45-73) % Lymph % (Auto) 18.0 L (20-40) % [place] % (Auto) 8.7 (2-11) % Eos % (Auto) 1.5 (0-4) % Baso % (Auto) 0.3 (0-2) % Lymph # (Auto) 2.0 (1.2-4.9) X10*3/uL [place] # (Auto) 1.0 (0.1-1.2) X10*3/uL Eos # (Auto) 0.2 (0.0-0.4) X10*3/uL Baso # (Auto) 0.0 (0.0-0.2) X10*3/uL Abs Immat Gran (auto) 0.03 (0.00-0.03) X10*3/uL Absolute Neuts (auto) 7.9 (2.0-8.3) x10*3/uL Absolute Nucleated RBC 0.000 (0.0-0.012) X10*3/uL Nucleated RBC % (auto) 0.0 (0.0-0.2) /100WBC Sodium 142 (135-145) mmol/L Potassium 3.3 (3.3-5.1) mmol/L Chloride 108 (96-108) mmol/L Carbon Dioxide 26 (22-29) mmol/L Anion Gap 11 L (12-20) BUN 9 (9-16) mg/dL Creatinine 0.75 (0.5-1.4) mg/dL Estim Creat Clear Calc 107.3 Estimated GFR > 60 Random Glucose 112 (60-115) mg/dL Calcium 9.1 (8.4-10.2) mg/dL Total Bilirubin 0.4 (0.0-1.0) mg/dL Direct Bilirubin 0.2 (0.0-0.5) mg/dL AST 39 H (5-31) U/L ALT 48 H (0-31) U/L Alkaline Phosphatase 75 (39-117) U/L Total Protein 6.5 (6.5-8.0) g/dL Albumin 4.0 (3.5-5.0) g/dL Lipase 12 (8-78) U/L Beta HCG, Quant < 2 mIU/mL Urine Color Dark Yellow Urine Appearance Clear Urine pH 7.0 (5.0-9.0) Ur Specific [place] >= 1.030 H (1.005-1.025) Urine Protein Trace (Neg-Trace) mg/dL Urine Glucose (UA) Negative (Negative) mg/dL Urine Ketones Trace (Negative) mg/dL Urine Blood Negative (Negative) Urine Nitrite Negative (Negative) Ur Leukocyte Esterase Trace H (Negative) Urine RBC 3-5 H (0-2) /HPF Urine WBC 0-5 (0-5) /HPF Ur Squamous Epith Cells 11-20 (0-2) /HPF Urine Bacteria 2+ (None Seen) Hyaline Casts 0-2 (0-2) /LPF Medications Administered Discontinued Medications Generic Name Dose Route Start Last Admin Trade Name Freq PRN Reason Stop Dose Admin Al Hydroxide/Mg Hydroxide 30 ml 07/16/23 05:31 07/16/23 06:00 Magnesium Hydrox/Alum Hydrox 30 Ml Oral.Susp PO 07/16/23 05:32 30 ml ONCE ONE Administration Dicyclomine HCl 10 mg 07/16/23 05:31 07/16/23 06:00 Dicyclomine Hcl 10 Mg Capsule PO 07/16/23 05:32 10 mg ONCE ONE Administration Ondansetron HCl 4 mg 07/16/23 05:31 07/16/23 06:00 Ondansetron Odt 4 Mg Tab.Rapdis TRANSLINGU 07/16/23 05:32 4 mg ONCE ONE Administration Discharge Plan Discharge Clinical Impression: Gastroenteritis Patient Disposition: Home, Self-Care Instructions: Gastroenteritis (ED) Additional Instructions: Drink plenty of fluids Medicine for nausea as prescribed Take medication for gastritis Avoid fried and spicy food Follow with PCP if not better Prescriptions: New omeprazole 40 mg capsule,delayed release(DR/EC) 40 mg PO DAILY Qty: 30 0RF ondansetron 4 mg tablet,disintegrating 4 mg PO Q6-8H PRN (Reason: nausea and vomiting) Qty: 7 0RF No Action ondansetron HCl [Zofran] 4 mg tablet 4 mg PO Q8H PRN (Reason: nausea and vomiting) Qty: 14 0RF levofloxacin 500 mg tablet 500 mg PO DAILY 7 Days Qty: 7 0RF doxycycline hyclate 100 mg tablet 100 mg PO BID 7 Days Qty: 14 0RF fluconazole 150 mg tablet 150 mg PO Q3D Qty: 2 0RF Rx Instructions: Please take 1 dose today, and if your vaginal infection does not clear up, take a 2nd dose 3 days from now nitrofurantoin macrocrystal 100 mg capsule 100 mg PO BID 7 Days Qty: 14 0RF Rx Instructions: must administer with a meal/food metronidazole 500 mg tablet 500 mg PO BID 7 Days Qty: 14 0RF Interventions: ED Discharge Assessment Last Done: 07/16/23 06:31 Discharge Date/Time: 07/16/23 06:32
[2023-07-16 05:27] LABS: HCG Quantitative < 2 mIU/mL
[2023-07-16 05:39] LABS: Appearance Urine Clear; Color Urine Dark Yellow; Glucose Urine UA Negative (Negative); Leukocyte Esterase Urine Trace (Negative); Nitrite Urine Negative (Negative); Specific Gravity - Urine >= 1.030 (1.005-1.025); UMIC TRIGGER UACC YES; Urine Blood Negative (Negative); Urine Ketones Trace mg/dL (Negative); Urine Protein Trace mg/dL (Neg-Trace)
[2023-07-16 05:41] LABS: Bacteria Urine 2+ (None Seen); Hyaline Casts Urine 0-2 /LPF (0-2); WBC Urine 0-5 /HPF (0-5)
--- NOTE | 2023-07-16 05:50 | PC.NURSE ---
Pt ambulated from waiting room with steady gait, AOx4, pt reporting 10/10 intermittent cramping abdominal pain since Monday. Pt reporting N/V. Pt reports she had Diarrhea/chills on monday as well, that have resolved anastasiya. Medicated JAN.
[2023-07-16] MEDS: Magnesium Hydrox/Alum Hydrox 30 ML ORAL.SUSP PO (06:00)
[2023-07-16] MEDS: Dicyclomine HCl 10 MG CAPSULE PO (06:00)
[2023-07-16] MEDS: Ondansetron ODT 4 MG TAB.RAPDIS TRANSLINGU (06:00)
--- NOTE | 2023-07-16 06:18 | PC.NURSE ---
PT tolerating PO fluids, awaiting d/c
== END 2023-07-16 06:32 | disposition home or self-care (01) ==
PROVIDERS: Emergency Provider Internal Medicine
DX: K52.9 Noninfective gastroenteritis and colitis, unspecified (principal); Z79.899 Other long term (current) drug therapy
CPT/HCPCS: 36415; 80048; 80076; 81001; 83690; 84702; 85025; 99284